=== PATIENT | female | born 1975 | race Caucasian/White ===

== ENCOUNTER 2017-11-08 09:23 | Outpatient (CLI) ==
--- NOTE | 2017-11-08 13:39 | US ---
EXAM: Right breast ultrasound and right axillary ultrasound History: Right breast mass. Comparison: Bilateral mammogram 11/08/2017 Technique: Multiple sonographic images through the right breast were obtained. Color and duplex Dopp ler was used to interrogate vascular flow. Findings: Within the right retroareolar region there is an irregular mass measuring 2.0 cm x 1.4 cm x 2.1 cm containing microcalcifications and demonstrating shadowing. This correlates with mammograph y and with the palpable area. No abnormal axillary lymph nodes. Impression: Right breast mass is suspicious for malignancy. Recommend further evaluation with ultra sound guided breast biopsy. Given the dense nodular breast tissue, a breast MRI could be useful after the biopsy results are evaluated. BIRADS 4
--- NOTE | 2017-11-09 12:48 | MAMMO ---
EXAM: Bilateral digital diagnostic mammogram (2-D and 3-D) History: Right breast palpable abnormality. Findings: MLO and CC views of bilateral breasts demonstrate heterogeneously dense breast parenchyma which can obscure small lesions. CAD was reviewed by the radiologist. Tomosynthesis was performed. Segmental pleomorphic calcifications seen within the central right breast extending towards the nipp le with possible associated mass. This correlates with the palpable abnormality. Impression: Indeterminate right breast mass with calcifications. Recommend further evaluation with ultrasound. BIRADS 0
== END 2017-11-08 09:24 | disposition home or self-care (01) ==
LOC: RAD 09:23
PROVIDERS: ATTEND Nurse Practitioner Family
DX: N63.41 Unspecified lump in right breast, subareolar (principal)

== ENCOUNTER 2019-05-28 10:51 | Emergency (ER) ==
[2019-05-28 10:57] VITALS: BP 135/86; TEMP 98.1; BMI 23.3
[2019-05-28] MEDS ORDERED: SODIUM CHLORIDE 1,000 ML IV STA (11:13)
--- NOTE | 2019-05-28 12:25 | CT ---
Exam: CT abdomen pelvis with intravenous contrast. Comparison: 03/17/2019. Reason for exam: Pain. FINDINGS: No pleural effusion, or focal airspace consolidation in the partially imaged lung bases. 8 mm hypodensity within the liver on axial image #9, not significantly changed from previous imaging performed on 03/17/2019. The spleen, adrenal glands, gallbladder, and pancreas appear grossly unremarkable. No evidence of small bowel dilatation or transition point. There is small bowel wall thickening seen throughout the abdomen and pelvis. The appendix is unremar kable. No hydronephrosis, hydroureter or nephrolithiasis in either kidney. The bladder is incompletely evaluated secondary to non distension. Degenerative changes are seen, L4-L5 and L5-S1. Impression: 1. Wall thickening is seen within the small bowel without evidence of obstruction. Findings are mos t consistent with enteritis. 2. No intra-abdominal free air, free fluid, or evidence of obstruction. 3. Similar appearing 8 mm hepatic hypodensity not significantly changed from previous imaging likely a cyst
--- NOTE | 2019-05-28 13:26 | ED.PDOC ---
General ED Provider: Dr. TANYA PATEL Chief Complaint: Abdominal Pain Stated Complaint: ABDOMINAL PAIN , S/P CHEMO 3 WEEKS AGO FOR THE BREAST CANCER . Time Seen by Physician: 11:00 Mode of Arrival: Walk-In Information Source: Patient Exam Limitations: No limitations Primary Care Provider: ARASH MADISON Nursing and Triage Documentation Reviewed and Agree: Yes Does patient meet sepsis criteria?: No System Inflammatory Response Syndrome: Not Applicable Sepsis Protocol: For patient's 13 years and over: Temp is 96.8 and below OR 101 and greater Pulse >90 BPM Resp >20/minute Acutely Altered Mental Status Are patient's symptoms suggestive of a new infection, such as: -Pneumonia -Skin, Soft Tissue -Endocarditis -UTI -Bone, Joint Infection -Implantable Device -Acute Abdominal Infection -Wound Infection -Meningitis -Blood Stream Catheter Infection -Unknown GI Complaint Exam - Abdominal Pain Complaint/Exam Onset: Gradual Duration: 1 DAY Symptoms Are: Still present Timing: Intermittent Initial Severity: Mild Current Severity: Mild Location of Pain: Diffuse Radiates To: Denies: Chest, Back, Flank, LLQ, RLQ, Inguinal Character: Reports: Dull Aggravating: Reports: Food Alleviating: Reports: None Associated Signs and Symptoms: Reports: Decreased appetite, Nausea, Diarrhea. Denies: Diaphoresis, Fever, Cough, Chest pain, Dizziness, Back pain, Constipation, Blood in stool, Dysuria, Urinary frequency, Decreased urine output , Vaginal bleeding, Vaginal discharge, Vomiting, Sore throat, Decreased activity Related History: Reports: Similar episode AAA Risk Factors: Reports: None Review of Systems - Review Of Systems Constitutional: Reports: No symptoms Eyes: Reports: No symptoms Ears, Nose, Mouth, Throat: Reports: No symptoms Respiratory: Reports: No symptoms Cardiac: Reports: No symptoms GI: Reports: Abdominal pain, Diarrhea, Nausea, Poor fluid intake : Reports: No symptoms Musculoskeletal: Reports: No symptoms Skin: Reports: No symptoms Neurological: Reports: No symptoms Endocrine: Reports: No symptoms Hematologic/Lymphatic: Reports: No symptoms All Other Systems: Reviewed and Negative Past Medical History - Past Medical History Previously Healthy: Yes Endocrine: Reports: None Cardiovascular: Reports: None Respiratory: Reports: None Hematological: Reports: None Gastrointestinal: Reports: None Genitourinary: Reports: None Neuro/Psych: Reports: None Musculoskeletal: Reports: None Cancer: Reports: Breast Last Menstrual Period: YEAR AGO - Surgical History General Surgical History: Reports: None - Family History Family History: Reports: None - Social History Smoking Status: Current some day smoker Hx Substance Use: No Alcohol Screening: None - Immunizations Tetanus Shot up to Date: No Physical Exam - Physical Exam Appearance: Well-appearing, No pain distress, Well-nourished Eyes: RADHA, EOMI, Conjunctiva clear ENT: Ears normal, Nose normal, Oropharynx normal Respiratory: Airway patent, Breath sounds clear, Breath sounds equal, Respirations nonlabored Cardiovascular: RRR, Pulses normal, No rub, No murmur GI/: Soft, Nontender, No masses, Bowel sounds normal, No Organomegaly Musculoskeletal: Normal strength, ROM intact, No edema, No calf tenderness Skin: Warm, Dry, Normal color Neurological: Sensation intact, Motor intact, Reflexes intact, Cranial nerves intact, Alert, Oriented Psychiatric: Affect appropriate, Mood appropriate Critical Care Note - Critical Care Note Total Time (mins): 0 Course - Course Hematology/Chemistry: 05/28/19 11:20 05/28/19 11:20 Orders, Labs, Meds: Lab Review 05/28/19 05/28/19 05/28/19 11:20 11:20 11:20 WBC 4.83 RBC 4.14 L Hgb 12.7 Hct 37.7 MCV 91.1 MCH 30.7 MCHC 33.7 RDW Coeff of Isidro 13.4 Plt Count 237 Immature Gran % (Auto) 0.2 Neut % (Auto) 57.2 Lymph % (Auto) 32.5 [place] % (Auto) 7.2 Eos % (Auto) 2.5 Baso % (Auto) 0.4 Immature Gran # (Auto) 0.0 Neut # (Auto) 2.8 Lymph # (Auto) 1.6 [place] # (Auto) 0.4 Eos # (Auto) 0.1 Baso # (Auto) 0.0 Sodium 140.1 Potassium 3.55 Chloride 106.6 Carbon Dioxide 28.0 Anion Gap 9.05 BUN 17.5 H Creatinine 1.18 Estimated GFR (MDRD) 50.00 BUN/Creatinine Ratio 14.83 Glucose 102.3 Calcium 9.66 Total Bilirubin 0.45 AST 31.5 ALT 20.7 Alkaline Phosphatase 102.4 Total Protein 7.34 Albumin 4.36 Globulin 2.98 Albumin/Globulin Ratio 1.46 Urine Color Yellow Urine Clarity Clear Urine pH 6.0 Ur Specific [place] >=1.030 Urine Protein Trace Urine Glucose (UA) Negative Urine Ketones Negative Urine Blood 2+ Urine Nitrite Negative Urine Bilirubin Negative Urine Urobilinogen 0.2 Ur Leukocyte Esterase Negative Urine Microscopic RBC 5-10 Ur Squamous Epith Cells 5-10 Orders Category Date Time Status NPO REMINDER: IMAGING ONCE CARE 05/28/19 11:12 Active ED IV/MEDIPORT/POWERPORT .ONCE EMERGENCY 05/28/19 11:12 Active CBC W/ AUTO DIFF Stat LAB 05/28/19 11:20 Completed COMPREHENSIVE METABOLIC PANEL Stat LAB 05/28/19 11:20 Completed URINALYSIS C & S IF INDICATED Stat LAB 05/28/19 11:20 Completed 0.9 % Sodium Chloride [Saline Flush] MEDS 05/28/19 11:12 Active 1 syr IVF PRN PRN Sodium Chloride 0.9% [Sodium Chloride] 1,000 ml MEDS 05/28/19 11:13 Active IV 125 mls/hr CT ABDOMEN/PELVIS W CONTRAST Stat RADS 05/28/19 11:12 Completed Medications Generic Name Dose Route Start Last Admin Trade Name Freq PRN Reason Stop Dose Admin Sodium Chloride 1,000 mls @ 125 mls/hr 05/28/19 11:13 05/28/19 11:36 Sodium Chloride IV 05/28/19 19:12 125 mls/hr .Q8H STA Administration Sodium Chloride 1 syr 05/28/19 11:12 Saline Flush IVF PRN PRN To flush IV Vital Signs: Temp Pulse Resp BP Pulse Ox 05/28/19 10:52 98.1 F 64 16 135/86 98 Departure - Departure Time of Disposition: 13:25 Disposition: HOME SELF-CARE Discharge Problem: Abdominal pain Instructions: Dehydration (ED), Acute Abdominal Pain (DC), Abdominal Pain (ED) Condition: Good Pt referred to PMD for follow-up: Yes IPMP verified?: No Additional Instructions: Please call your Family Physician as soon as possible to schedule a follow-up appointment.Please call your Family Physician as soon as possible to schedule a follow-up appointment. Allergies/Adverse Reactions: Allergies No Known Allergies Allergy (Unverified 05/28/19 11:07) Home Medications: Ambulatory Orders Ropinirole HCl [Requip] 1 mg PO BID 05/28/19 Tamoxifen Citrate 20 mg PO DAILY 05/28/19 Venlafaxine HCl [Venlafaxine HCl ER] 75 mg PO DAILYWM 05/28/19
== END 2019-05-28 13:35 | disposition home or self-care (01) ==
LOC: ED 10:51
DX: R10.84 Generalized abdominal pain (principal); C50.919 Malignant neoplasm of unspecified site of unspecified female breast; R11.0 Nausea; R19.7 Diarrhea, unspecified; Z92.21 Personal history of antineoplastic chemotherapy; F17.210 Nicotine dependence, cigarettes, uncomplicated
CPT/HCPCS: 36415; 80053; 81001; 85025; 96360; 96361; 99283